=== PATIENT | male | born 1955 | race Two or more races ===

== ENCOUNTER 2020-03-07 06:56 | Outpatient (CLI) | payer OTHER | END 2020-03-07 07:37 | disposition home or self-care (01) | LOC: LAB 06:56 | PROVIDERS: ATTEND Internal Medicine Hematology & Oncology | DX: D50.8 Other iron deficiency anemias (principal); I10 Essential (primary) hypertension; R70.0 Elevated erythrocyte sedimentation rate; C25.9 Malignant neoplasm of pancreas, unspecified; R97.8 Other abnormal tumor markers; R97.0 Elevated carcinoembryonic antigen [CEA]; R97.20 Elevated prostate specific antigen [PSA]; D51.3 Other dietary vitamin B12 deficiency anemia; M06.4 Inflammatory polyarthropathy ==

== ENCOUNTER 2020-06-05 08:05 | Outpatient (CLI) | payer OTHER | END 2020-06-05 08:18 | disposition home or self-care (01) | LOC: LAB 08:05 | PROVIDERS: ATTEND Internal Medicine Hematology & Oncology | DX: R79.89 Other specified abnormal findings of blood chemistry (principal); I10 Essential (primary) hypertension; R74.02 Elevation of levels of lactic acid dehydrogenase [LDH]; K76.89 Other specified diseases of liver; D50.8 Other iron deficiency anemias; D47.2 Monoclonal gammopathy; C90.00 Multiple myeloma not having achieved remission; D72.818 Other decreased white blood cell count; D51.3 Other dietary vitamin B12 deficiency anemia; M06.4 Inflammatory polyarthropathy; M41.25 Other idiopathic scoliosis, thoracolumbar region ==

== ENCOUNTER → 2020-07-06 | Outpatient (CLI) | payer OTHER | END | disposition home or self-care (01) | LOC: MRI 10:15 | PROVIDERS: ATTEND Internal Medicine Hematology & Oncology | DX: C88.0 Waldenstrom macroglobulinemia (principal); D47.2 Monoclonal gammopathy; D72.818 Other decreased white blood cell count; D51.3 Other dietary vitamin B12 deficiency anemia; M06.4 Inflammatory polyarthropathy; M41.25 Other idiopathic scoliosis, thoracolumbar region | CPT/HCPCS: 70553 ==

== ENCOUNTER 2020-07-27 06:50 | Outpatient (CLI) | payer OTHER | END 2020-07-27 07:00 | disposition home or self-care (01) | LOC: LAB 06:50 | PROVIDERS: ATTEND Internal Medicine Hematology & Oncology | DX: D50.8 Other iron deficiency anemias (principal); R79.89 Other specified abnormal findings of blood chemistry; I10 Essential (primary) hypertension; R74.02 Elevation of levels of lactic acid dehydrogenase [LDH]; K76.89 Other specified diseases of liver; D51.8 Other vitamin B12 deficiency anemias; C88.0 Waldenstrom macroglobulinemia; D47.2 Monoclonal gammopathy; D72.818 Other decreased white blood cell count; D51.3 Other dietary vitamin B12 deficiency anemia; M06.4 Inflammatory polyarthropathy; M41.25 Other idiopathic scoliosis, thoracolumbar region ==

== ENCOUNTER → 2020-12-14 07:12 | Outpatient (CLI) | payer OTHER | END | disposition home or self-care (01) | LOC: LAB 07:12 | PROVIDERS: ATTEND Internal Medicine Hematology & Oncology | DX: D50.8 Other iron deficiency anemias (principal); R79.89 Other specified abnormal findings of blood chemistry; I10 Essential (primary) hypertension; R74.02 Elevation of levels of lactic acid dehydrogenase [LDH]; K76.89 Other specified diseases of liver; D51.8 Other vitamin B12 deficiency anemias; C88.0 Waldenstrom macroglobulinemia; D47.2 Monoclonal gammopathy; D72.818 Other decreased white blood cell count; D51.3 Other dietary vitamin B12 deficiency anemia; M06.4 Inflammatory polyarthropathy; M41.25 Other idiopathic scoliosis, thoracolumbar region ==

== ENCOUNTER → 2021-03-12 06:34 | Outpatient (CLI) | payer OTHER | END | disposition home or self-care (01) | LOC: LAB 06:34 | PROVIDERS: ATTEND Internal Medicine Hematology & Oncology | DX: D50.8 Other iron deficiency anemias (principal); R79.89 Other specified abnormal findings of blood chemistry; I10 Essential (primary) hypertension; R74.02 Elevation of levels of lactic acid dehydrogenase [LDH]; K76.89 Other specified diseases of liver; D51.8 Other vitamin B12 deficiency anemias; D47.2 Monoclonal gammopathy; C90.00 Multiple myeloma not having achieved remission; C88.0 Waldenstrom macroglobulinemia; D72.818 Other decreased white blood cell count; D51.3 Other dietary vitamin B12 deficiency anemia; M06.4 Inflammatory polyarthropathy; M41.25 Other idiopathic scoliosis, thoracolumbar region ==

== ENCOUNTER 2021-06-15 08:49 | Outpatient (CLI) | payer OTHER | END 2021-06-15 09:02 | disposition home or self-care (01) | LOC: LAB 08:49 | PROVIDERS: ATTEND Internal Medicine Hematology & Oncology | DX: D50.8 Other iron deficiency anemias (principal); R79.89 Other specified abnormal findings of blood chemistry; I10 Essential (primary) hypertension; R74.02 Elevation of levels of lactic acid dehydrogenase [LDH]; K76.89 Other specified diseases of liver; E03.8 Other specified hypothyroidism; D47.2 Monoclonal gammopathy; C90.00 Multiple myeloma not having achieved remission; R97.0 Elevated carcinoembryonic antigen [CEA]; R97.8 Other abnormal tumor markers; C88.0 Waldenstrom macroglobulinemia; D72.818 Other decreased white blood cell count; D51.3 Other dietary vitamin B12 deficiency anemia; M06.4 Inflammatory polyarthropathy; M41.25 Other idiopathic scoliosis, thoracolumbar region ==

== ENCOUNTER 2021-09-17 07:42 | Outpatient (CLI) | payer OTHER | END 2021-09-17 07:58 | disposition home or self-care (01) | LOC: LAB 07:42 | PROVIDERS: ATTEND Internal Medicine Hematology & Oncology | DX: D50.8 Other iron deficiency anemias (principal); R79.9 Abnormal finding of blood chemistry, unspecified; I10 Essential (primary) hypertension; R74.02 Elevation of levels of lactic acid dehydrogenase [LDH]; K76.89 Other specified diseases of liver; D47.2 Monoclonal gammopathy; C90.00 Multiple myeloma not having achieved remission; C88.0 Waldenstrom macroglobulinemia; D72.818 Other decreased white blood cell count; D51.3 Other dietary vitamin B12 deficiency anemia; M06.4 Inflammatory polyarthropathy; M41.25 Other idiopathic scoliosis, thoracolumbar region ==

== ENCOUNTER 2022-01-22 07:18 | Outpatient (CLI) | payer OTHER | END 2022-01-22 07:19 | disposition home or self-care (01) | LOC: LAB 07:18 | PROVIDERS: ATTEND Internal Medicine Hematology & Oncology | DX: D50.8 Other iron deficiency anemias (principal); R79.9 Abnormal finding of blood chemistry, unspecified; I10 Essential (primary) hypertension; R74.02 Elevation of levels of lactic acid dehydrogenase [LDH]; K76.89 Other specified diseases of liver; C88.0 Waldenstrom macroglobulinemia; D47.2 Monoclonal gammopathy; D72.818 Other decreased white blood cell count; D51.3 Other dietary vitamin B12 deficiency anemia; M06.4 Inflammatory polyarthropathy; M41.25 Other idiopathic scoliosis, thoracolumbar region ==

== ENCOUNTER 2022-05-26 07:02 | Outpatient (CLI) | payer OTHER | END 2022-05-26 07:03 | disposition home or self-care (01) | LOC: LAB 07:02 | PROVIDERS: ATTEND Internal Medicine Hematology & Oncology | DX: D50.8 Other iron deficiency anemias (principal); R79.9 Abnormal finding of blood chemistry, unspecified; I10 Essential (primary) hypertension; R74.02 Elevation of levels of lactic acid dehydrogenase [LDH]; K76.89 Other specified diseases of liver; D51.8 Other vitamin B12 deficiency anemias; E55.9 Vitamin D deficiency, unspecified; D47.2 Monoclonal gammopathy; C90.00 Multiple myeloma not having achieved remission ==

== ENCOUNTER → 2022-08-23 11:21 | Outpatient (CLI) | payer OTHER | END | disposition home or self-care (01) | LOC: LAB 11:21 | PROVIDERS: ATTEND Internal Medicine Hematology & Oncology | DX: D50.8 Other iron deficiency anemias (principal); R79.9 Abnormal finding of blood chemistry, unspecified; I10 Essential (primary) hypertension; R74.02 Elevation of levels of lactic acid dehydrogenase [LDH]; K76.89 Other specified diseases of liver; D51.8 Other vitamin B12 deficiency anemias; D47.2 Monoclonal gammopathy; C90.00 Multiple myeloma not having achieved remission; C88.0 Waldenstrom macroglobulinemia; D72.818 Other decreased white blood cell count; D51.3 Other dietary vitamin B12 deficiency anemia; M06.4 Inflammatory polyarthropathy; M41.25 Other idiopathic scoliosis, thoracolumbar region ==

== ENCOUNTER 2023-05-21 07:15 | Outpatient (CLI) | payer OTHER ==
[2023-05-21 08:43] LABS: HEMATOCRIT 37.9 % (39.0-48.0); MEAN CELL VOLUME 100.5 fL (80.0-100.00); MEAN CORPUSCULAR HEMOGLOBIN 34.5 pg (27.00-32.0); MEAN CORPUSCULAR HGB CONC 34.3 g/dl (32.0-36.0); PLATELET COUNT 260 K/uL (150-450); RED BLOOD COUNT 3.77 M/uL (4.00-6.00); RED CELL DISTRIBUTION WIDTH 13.9 % (11.5-14.5)
[2023-05-21 09:41] LABS: % SATURACION 30.5 % (20-50); BILIRUBIN TOTAL 0.63 mg/dL (0.3-1.2); CALCIUM 9.2 mg/dL (8.5-10.1); CREATININE SERUM 0.88 mg/dL (0.70-1.30); FERRITIN 255.2 NG/ML (26-388); GFR 86.91; GLOBULINA 6.8 G/DL (2.4-3.5); POTASSIUM 3.94 mEq/L (3.5-5.1); TOTAL PROTEIN 9.8 gm/dL (6.4-8.2)
[2023-05-21 09:54] LABS: FOLIC ACID > 20.00 ng/ml (4.78-20)
[2023-05-21 10:00] LABS: MANUAL PLATELET COUNT 478
[2023-05-21 10:02] LABS: PLATELET ESTIMATE INCREASED (NORMAL)
[2023-05-22 14:11] LABS: kappa lambda r 0.1 (0.26-1.65); lambda light 164.2 mg/L (5.7-26.3)
[2023-05-23 15:10] LABS: a:g ratio 0.6 (0.7-1.7); alpha 1 g 0.2 g/dL (0.0-0.4); alpha 2 0.6 g/dL (0.4-1.0); beta g 4.4 g/dL (0.7-1.3); gamma g 0.6 g/dL (0.4-1.8); globulin t 5.9 g/dL (2.2-3.9); m spike 3.1 g/dL (Not Observed); prot total 9.7 g/dL (6.0-8.5)
[2023-05-24 16:06] LABS: BETA-2-MICROGLOBULINA 2.2 mg/L (0.6-2.4)
== END 2023-05-21 07:16 | disposition home or self-care (01) ==
LOC: LAB 07:15
PROVIDERS: ATTEND Internal Medicine Hematology & Oncology
DX: C88.0 Waldenstrom macroglobulinemia (principal); D47.2 Monoclonal gammopathy; D72.818 Other decreased white blood cell count; D51.3 Other dietary vitamin B12 deficiency anemia; M06.4 Inflammatory polyarthropathy; M41.25 Other idiopathic scoliosis, thoracolumbar region

== ENCOUNTER 2023-09-02 08:42 | Outpatient (CLI) | payer OTHER ==
[2023-09-02 09:35] LABS: HEMATOCRIT 36.5 % (39.0-48.0); HEMOGLOBIN 12.7 g/dL (13-16.00); MEAN CELL VOLUME 98.4 fL (80.0-100.00); MEAN CORPUSCULAR HEMOGLOBIN 34.3 pg (27.00-32.0); MEAN CORPUSCULAR HGB CONC 34.9 g/dl (32.0-36.0); PLATELET COUNT 220 K/uL (150-450); RED BLOOD COUNT 3.71 M/uL (4.00-6.00); RED CELL DISTRIBUTION WIDTH 14.4 % (11.5-14.5)
[2023-09-02 10:18] LABS: % SATURACION 26.5 % (20-50); BILIRUBIN TOTAL 0.38 mg/dL (0.3-1.2); CREATININE SERUM 0.85 mg/dL (0.70-1.30); FERRITIN 212.9 NG/ML (26-388); GFR 90.18; POTASSIUM 4.24 mEq/L (3.5-5.1)
[2023-09-02 10:25] LABS: CALCIUM 9.8 mg/dL (8.5-10.1)
[2023-09-02 11:06] LABS: FOLIC ACID > 20.00 ng/ml (4.78-20)
[2023-09-02 11:50] LABS: MANUAL PLATELET COUNT 520; PLATELET ESTIMATE NORMAL (NORMAL)
[2023-09-03 13:08] LABS: kappa lambda r 0.1 (0.26-1.65); kappa light 20.7 mg/L (3.3-19.4); lambda light 212.1 mg/L (5.7-26.3)
[2023-09-04 17:07] LABS: BETA-2-MICROGLOBULINA 2.2 mg/L (0.6-2.4)
== END 2023-09-02 08:51 | disposition home or self-care (01) ==
LOC: LAB 08:42
PROVIDERS: ATTEND Internal Medicine Hematology & Oncology
DX: C88.0 Waldenstrom macroglobulinemia (principal); D47.2 Monoclonal gammopathy; D72.818 Other decreased white blood cell count; D51.0 Vitamin B12 deficiency anemia due to intrinsic factor deficiency; M41.25 Other idiopathic scoliosis, thoracolumbar region

== ENCOUNTER 2024-01-05 11:18 | Outpatient (CLI) | payer OTHER ==
[2024-01-05 12:17] LABS: HEMATOCRIT 35.3 % (39.0-48.0); HEMOGLOBIN 12.5 g/dL (13-16.00); MEAN CELL VOLUME 99.4 fL (80.0-100.00); MEAN CORPUSCULAR HEMOGLOBIN 35.2 pg (27.00-32.0); MEAN CORPUSCULAR HGB CONC 35.5 g/dl (32.0-36.0); PLATELET COUNT 248 K/uL (150-450); RED BLOOD COUNT 3.55 M/uL (4.00-6.00); RED CELL DISTRIBUTION WIDTH 14.5 % (11.5-14.5)
[2024-01-05 13:27] LABS: % SATURACION 29.6 % (20-50); BILIRUBIN TOTAL 0.75 mg/dL (0.3-1.2); CALCIUM 9.3 mg/dL (8.5-10.1); CREATININE SERUM 0.87 mg/dL (0.70-1.30); FERRITIN 183.7 NG/ML (26-388); GFR 87.79; GLOBULINA 7.4 G/DL (2.4-3.5); POTASSIUM 4.09 mEq/L (3.5-5.1)
[2024-01-05 13:36] LABS: FOLIC ACID > 20.00 ng/ml (4.78-20); TOTAL PROTEIN 10.4 gm/dL (6.4-8.2)
[2024-01-05 13:37] LABS: MANUAL PLATELET COUNT 522
[2024-01-05 13:38] LABS: PLATELET ESTIMATE NORMAL (NORMAL)
== END 2024-01-05 11:27 | disposition home or self-care (01) ==
LOC: LAB 11:18
PROVIDERS: ATTEND Internal Medicine Hematology & Oncology
DX: C88.0 Waldenstrom macroglobulinemia (principal); D47.2 Monoclonal gammopathy; D72.818 Other decreased white blood cell count; D51.3 Other dietary vitamin B12 deficiency anemia; M06.4 Inflammatory polyarthropathy; M41.25 Other idiopathic scoliosis, thoracolumbar region

== ENCOUNTER → 2024-06-03 11:58 | Outpatient (CLI) | payer OTHER ==
[2024-06-03 12:29] LABS: HEMATOCRIT 35.1 % (39.0-48.0); HEMOGLOBIN 12.1 g/dL (13-16.00); MEAN CELL VOLUME 100.9 fL (80.0-100.00); MEAN CORPUSCULAR HEMOGLOBIN 34.9 pg (27.00-32.0); MEAN CORPUSCULAR HGB CONC 34.6 g/dl (32.0-36.0); PLATELET COUNT 219 K/uL (150-450); RED BLOOD COUNT 3.48 M/uL (4.00-6.00); RED CELL DISTRIBUTION WIDTH 14.4 % (11.5-14.5)
[2024-06-03 13:12] LABS: CHOL HDL RATIO 2.8 (0-5.0)
[2024-06-03 13:20] LABS: % SATURACION 17.4 % (20-50); ALBUMIN 2.9 gm/dL (3.4-5.0); BILIRUBIN TOTAL 0.45 mg/dL (0.3-1.2); CREATININE SERUM 0.83 mg/dL (0.70-1.30); FERRITIN 169.6 NG/ML (26-388); GFR 92.69; GLOBULINA 7.2 G/DL (2.4-3.5); POTASSIUM 4.35 mEq/L (3.5-5.1); PROSTATIC SPECIFIC ANTIGEN 0.442 NG/ML (0.010-4.00); T4 FREE 0.91 NG/ML (0.76-1.46); TOTAL PROTEIN 10.1 gm/dL (6.4-8.2); TSH 1.34 uIU/mL (0.358-3.74)
[2024-06-03 13:33] LABS: MANUAL PLATELET COUNT 244
[2024-06-03 13:34] LABS: PLATELET ESTIMATE NORMAL (NORMAL)
[2024-06-03 13:41] LABS: FOLIC ACID > 20.00 ng/ml (4.78-20); VITAMIN D3 25 HYDROXY 30.94 ng/ml (30-120)
== END | disposition home or self-care (01) ==
LOC: LAB 11:58
PROVIDERS: ATTEND Internal Medicine Hematology & Oncology
DX: C88.00 Waldenstrom macroglobulinemia not having achieved remission (principal); D47.2 Monoclonal gammopathy; D72.818 Other decreased white blood cell count; D51.3 Other dietary vitamin B12 deficiency anemia; M06.4 Inflammatory polyarthropathy; M41.25 Other idiopathic scoliosis, thoracolumbar region; D50.8 Other iron deficiency anemias; R79.9 Abnormal finding of blood chemistry, unspecified; I10 Essential (primary) hypertension; R74.02 Elevation of levels of lactic acid dehydrogenase [LDH]; K76.89 Other specified diseases of liver; E55.9 Vitamin D deficiency, unspecified; E03.8 Other specified hypothyroidism; R97.0 Elevated carcinoembryonic antigen [CEA]